=== PATIENT | female | born 1940 | race African-American/Black ===

== ENCOUNTER 2021-09-12 09:36 | Emergency (ER) | payer MEDICARE ==
[~2021-09-12] VITALS: Ht 160 cm; Wt 77.0 kg
[2021-09-12] MEDS ORDERED: MECLIZINE 12.5MG TABLET PO NR (12:00)
[2021-09-12 12:20] LABS: BASOPHILS % 0.5 % (0.0-2.0); EOSINOPHILS % 0.2 % (0.0-5.0); HEMATOCRIT. 32.9 % (36.0-48.0); HEMOGLOBIN. 10.8 g/dL (12.0-16.0); LYMPHOCYTES % 21.4 % (20.0-50.0); MEAN CORPUSCULAR HEMOGLOBIN 24.6 pg (28.0-32.0); MEAN CORPUSCULAR VOLUME 74.8 fL (81.0-99.0); MEAN PLATELET VOLUME 7.2 fl (7.4-10.4); MONOCYTES % 4.4 % (2.0-8.0); NEUTROPHILS % 73.5 % (40.0-76.0); PLATELET 226 x1000/uL (130-400); RED BLOOD CELL COUNT 4.39 mill/uL (4.2-5.4); RED CELL DISTRIBUTION WIDTH 15.7 % (11.6-14.6)
[2021-09-12 12:26] LABS: CHLORIDE 104 mEq/L (98-107)
[2021-09-12 12:32] LABS: CLARITY URINE CLEAR (CLEAR); COLOR URINE YELLOW (YELLOW); KETONES URINE NEGATIVE (NEGATIVE); LEUKOCYTE ESTERASE URINE NEGATIVE (NEGATIVE); NITRITE URINE NEGATIVE (NEGATIVE); OCCULT BLOOD URINE 1+ (NEGATIVE); PH URINE 6.5 (4.5-8.0); PROTEIN URINE NEGATIVE (NEGATIVE); SPECIFIC GRAVITY URINE 1.008 (1.005-1.030); UROBILINOGEN URINE 0.2 E.U./dL (0.2-1.0)
[2021-09-12] MEDS ORDERED: POTASSIUM CHLORIDE 20MEQ TABLET SR PO NR (14:00)
[2021-09-12 14:27] VITALS: BP 132/96
== END 2021-09-12 14:29 | disposition home or self-care (01) ==
LOC: ER 09:36
DX: I10 Essential (primary) hypertension (principal); R42 Dizziness and giddiness; E87.6 Hypokalemia; D64.9 Anemia, unspecified; Z96.651 Presence of right artificial knee joint
CPT/HCPCS: 36415; 71045; 80053; 81003; 84484; 85025; 93005; 99285; J8597

== ENCOUNTER 2021-12-27 11:16 | Emergency (ER) | payer MEDICARE ==
[~2021-12-27] VITALS: Ht 167.6 cm; Wt 89.0 kg
[2021-12-27 11:24] VITALS: BP 137/78
[2021-12-27] MEDS ORDERED: ACETAMINOPHEN 325MG TABLET PO ONE (12:30)
== END 2021-12-27 13:43 | disposition home or self-care (01) ==
LOC: ER 11:16
DX: M25.561 Pain in right knee (principal); I10 Essential (primary) hypertension
CPT/HCPCS: 73562; 99283

== ENCOUNTER 2022-03-30 12:48 | Emergency (ER) | payer MEDICARE, MEDICAID ==
[~2022-03-30] VITALS: Ht 162.6 cm; Wt 70.0 kg
[2022-03-30 15:45] VITALS: BP 161/87
== END 2022-03-30 16:00 | disposition home or self-care (01) ==
LOC: ER 12:48
DX: M25.561 Pain in right knee (principal); E78.00 Pure hypercholesterolemia, unspecified; I10 Essential (primary) hypertension; W01.0XXA Fall on same level from slipping, tripping and stumbling without subsequent striking against object, initial encounter; Y93.9 Activity, unspecified; Y92.9 Unspecified place or not applicable
CPT/HCPCS: 73562; 99283

== ENCOUNTER 2022-05-01 07:47 | Emergency (ER) | payer MEDICARE, MEDICAID ==
[~2022-05-01] VITALS: Ht 160 cm; Wt 73.0 kg
[2022-05-01] MEDS ORDERED: ACETAMINOPHEN 325MG TABLET PO ONE (09:15)
[2022-05-01] MEDS ORDERED: NAPR-681 PO (09:23)
[2022-05-01] MEDS ORDERED: NAPROXEN 375MG TABLET PO ONE (09:30)
[2022-05-01 09:40] LABS: BASOPHILS % 0.6 % (0.0-2.0); EOSINOPHILS % 0.4 % (0.0-5.0); HEMATOCRIT. 32.7 % (36.0-48.0); HEMOGLOBIN. 10.6 g/dL (12.0-16.0); LYMPHOCYTES % 38.2 % (20.0-50.0); MEAN CORPUSCULAR HEMOGLOBIN 24.6 pg (28.0-32.0); MEAN CORPUSCULAR VOLUME 75.7 fL (81.0-99.0); MEAN PLATELET VOLUME 7.5 fl (7.4-10.4); MONOCYTES % 7.5 % (2.0-8.0); NEUTROPHILS % 53.3 % (40.0-76.0); PLATELET 204 x1000/uL (130-400); RED BLOOD CELL COUNT 4.32 mill/uL (4.2-5.4); RED CELL DISTRIBUTION WIDTH 15.3 % (11.6-14.6)
[2022-05-01 09:47] LABS: CHLORIDE 100 mEq/L (98-107)
[2022-05-01 09:49] LABS: PROTHROMBIN TIME 11.2 sec (9.6-11.0)
[2022-05-01 09:55] VITALS: BP 147/84
== END 2022-05-01 10:08 | disposition home or self-care (01) ==
LOC: ER 07:47
DX: S09.8XXA Other specified injuries of head, initial encounter (principal); S80.01XA Contusion of right knee, initial encounter; M25.461 Effusion, right knee; I10 Essential (primary) hypertension; E78.00 Pure hypercholesterolemia, unspecified; Z96.651 Presence of right artificial knee joint; W01.0XXA Fall on same level from slipping, tripping and stumbling without subsequent striking against object, initial encounter; Y93.89 Activity, other specified; Y92.018 Other place in single-family (private) house as the place of occurrence of the external cause
CPT/HCPCS: 36415; 73560; 80053; 85025; 99285

== ENCOUNTER 2022-11-01 21:58 | Emergency (ER) | payer MEDICARE, MEDICAID ==
[~2022-11-01] VITALS: Ht 167.6 cm; Wt 59.0 kg
[~2022-11-01 21:58] MED LIST: NAPR-681 PO
[2022-11-02] MEDS ORDERED: LIDOCAINE 5% PATCH TOP SCH (03:00)
[2022-11-02 03:13] LABS: BASOPHILS % 0.8 % (0.0-2.0); EOSINOPHILS % 0.4 % (0.0-5.0); HEMATOCRIT. 31.8 % (36.0-48.0); HEMOGLOBIN. 10.2 g/dL (12.0-16.0); LYMPHOCYTES % 38.1 % (20.0-50.0); MEAN CORPUSCULAR VOLUME 74.7 fL (81.0-99.0); MEAN PLATELET VOLUME 7.1 fl (7.4-10.4); MONOCYTES % 10.5 % (2.0-8.0); NEUTROPHILS % 50.2 % (40.0-76.0); PLATELET 212 x1000/uL (130-400); RED BLOOD CELL COUNT 4.26 mill/uL (4.2-5.4); RED CELL DISTRIBUTION WIDTH 15.9 % (11.6-14.6)
[2022-11-02 03:19] LABS: CHLORIDE 108 mEq/L (98-107)
[2022-11-02] MEDS ORDERED: ACETAMINOPHEN 325MG TABLET PO ONE (03:45)
[2022-11-02] MEDS ORDERED: IBUPROFEN 400MG TABLET PO ONE (03:45)
[2022-11-02 04:19] LABS: CLARITY URINE CLEAR (CLEAR); COLOR URINE YELLOW (YELLOW); KETONES URINE NEGATIVE (NEGATIVE); LEUKOCYTE ESTERASE URINE NEGATIVE (NEGATIVE); NITRITE URINE NEGATIVE (NEGATIVE); OCCULT BLOOD URINE 3+ (NEGATIVE); PH URINE 6.5 (4.5-8.0); PROTEIN URINE NEGATIVE (NEGATIVE); SPECIFIC GRAVITY URINE 1.023 (1.005-1.030)
[2022-11-02] MEDS ORDERED: LIDO700A15 TP (04:59)
[2022-11-02] MEDS ORDERED: TOPUD MT (04:59)
[2022-11-02 05:08] VITALS: BP 118/67
== END 2022-11-02 05:09 | disposition home or self-care (01) ==
LOC: ER 21:58
DX: S39.012A Strain of muscle, fascia and tendon of lower back, initial encounter (principal); I10 Essential (primary) hypertension; E78.00 Pure hypercholesterolemia, unspecified; D64.9 Anemia, unspecified; Z98.890 Other specified postprocedural states; X50.0XXA Overexertion from strenuous movement or load, initial encounter; X50.9XXA Other and unspecified overexertion or strenuous movements or postures, initial encounter; Y93.89 Activity, other specified; Y92.89 Other specified places as the place of occurrence of the external cause; Y99.8 Other external cause status
CPT/HCPCS: 36415; 80053; 81003; 85025; 99283

== ENCOUNTER 2022-12-07 18:29 | Emergency (ER) | payer MEDICARE, MEDICAID ==
[~2022-12-07] VITALS: Ht 162.6 cm; Wt 72.6 kg
[~2022-12-07 18:29] MED LIST changes: +LIDO700A15 TP; +TOPUD MT
[2022-12-07] MEDS ORDERED: NAPROXEN 375MG TABLET PO ONE (23:00)
[2022-12-07] MEDS ORDERED: NAPR-677 MT (23:51)
[2022-12-08 00:13] VITALS: BP 132/72
== END 2022-12-08 00:21 | disposition home or self-care (01) ==
LOC: ER 18:29
DX: S13.9XXA Sprain of joints and ligaments of unspecified parts of neck, initial encounter (principal); X58.XXXA Exposure to other specified factors, initial encounter; Y93.89 Activity, other specified; Y92.89 Other specified places as the place of occurrence of the external cause; Y99.8 Other external cause status; E78.00 Pure hypercholesterolemia, unspecified; I10 Essential (primary) hypertension
CPT/HCPCS: 73000; 99283; A4565

== ENCOUNTER 2023-08-28 16:15 | Emergency (ER) | payer MEDICARE, MEDICAID ==
[~2023-08-28] VITALS: Ht 162.6 cm; Wt 86.9 kg
[~2023-08-28 16:15] MED LIST changes: +NAPR-677 MT
[2023-08-28 16:28] VITALS: O2SAT 99
[2023-08-28] MEDS: IBUPROFEN 400MG TABLET PO ONE (19:18)
[2023-08-28 19:39] VITALS: BP 162/67; PULSE 75; RESP 18; TEMP 97.7
== END 2023-08-28 19:45 | disposition home or self-care (01) ==
LOC: ER 16:15
DX: M25.511 Pain in right shoulder (principal); M17.12 Unilateral primary osteoarthritis, left knee; E78.00 Pure hypercholesterolemia, unspecified; I10 Essential (primary) hypertension; Z98.890 Other specified postprocedural states
CPT/HCPCS: 73030; 73562; 99283

== ENCOUNTER 2023-09-24 10:01 | Emergency (ER) | payer MEDICARE, MEDICAID ==
[~2023-09-24] VITALS: Ht 157.5 cm; Wt 73.0 kg
[2023-09-24] MEDS: LIDOCAINE 5% PATCH TOP SCH (09:00)
[2023-09-24 10:06] VITALS: O2SAT 99
[2023-09-24] MEDS: ACETAMINOPHEN 500MG TABLET PO ONE (11:01)
[2023-09-24] MEDS ORDERED: ACET-2708 MT (11:33)
[2023-09-24] MEDS ORDERED: LIDO700A15 TP (11:33)
[2023-09-24] MEDS ORDERED: CEPH500T MT (11:35)
[2023-09-24 11:50] VITALS: PULSE 61; TEMP 97.6
[2023-09-24 11:53] VITALS: BP 164/80; RESP 18
== END 2023-09-24 11:49 | disposition home or self-care (01) ==
LOC: ER 11:05
DX: T81.89XA Other complications of procedures, not elsewhere classified, initial encounter (principal); S81.831A Puncture wound without foreign body, right lower leg, initial encounter; M54.50 Low back pain, unspecified; E78.00 Pure hypercholesterolemia, unspecified; I10 Essential (primary) hypertension; Z79.899 Other long term (current) drug therapy; X58.XXXA Exposure to other specified factors, initial encounter; Y93.89 Activity, other specified; Y92.89 Other specified places as the place of occurrence of the external cause; Y99.8 Other external cause status
CPT/HCPCS: 99283

== ENCOUNTER 2023-10-24 12:40 | Emergency (ER) | payer MEDICARE, MEDICAID ==
[~2023-10-24] VITALS: Ht 167.6 cm; Wt 53.0 kg
[~2023-10-24 12:40] MED LIST changes: +ACET-2708 MT; +CEPH500T MT
[2023-10-24 12:42] VITALS: O2SAT 100
[2023-10-24 13:36] LABS: BASOPHILS % 0.4 % (0.0-2.0); DIFFERENTIAL COMMENT 0; EOSINOPHILS % 1.2 % (0.0-5.0); HEMATOCRIT. 33.4 % (36.0-48.0); HEMOGLOBIN. 10.6 g/dL (12.0-16.0); LYMPHOCYTES % 40.8 % (20.0-50.0); MEAN CORPUSCULAR HGB CONC 31.7 g/dL (31.0-37.0); MEAN CORPUSCULAR VOLUME 75.7 fL (81.0-99.0); MEAN PLATELET VOLUME 7.5 fl (7.4-10.4); MONOCYTES % 7.1 % (2.0-8.0); NEUTROPHILS % 50.5 % (40.0-76.0); PLATELET 157 x1000/uL (130-400); RED BLOOD CELL COUNT 4.41 mill/uL (4.2-5.4); WHITE BLOOD COUNT 4.2 x1000/uL (4.5-11.0)
[2023-10-24 13:46] LABS: CHLORIDE 107 mEq/L (98-107); POTASSIUM 3.6 mEq/L (3.5-5.1); SODIUM 139 mEq/L (136-145)
[2023-10-24 13:47] LABS: CARBON DIOXIDE 25 mEq/L (21-32)
[2023-10-24 13:52] LABS: CREATININE 0.8 mg/dL (0.6-1.0); GLUCOSE 91 mg/dL (70-105); UREA NITROGEN BLOOD 12 mg/dL (9-23)
[2023-10-24 13:53] LABS: TROPONIN I HIGH SENSITIVITY 10 ng/L (3.0-34)
[2023-10-24 13:54] LABS: ALANINE AMINOTRANSFERASE 77 IU/L (10-49); ALBUMIN 4.2 g/dL (3.2-4.8); ASPARTATE AMINOTRANSFERASE 38 IU/L (<34)
[2023-10-24 13:55] LABS: BILIRUBIN TOTAL 0.7 mg/dL (0.1-1.0); PROTEIN TOTAL 8.6 g/dL (6.0-8.3)
[2023-10-24] MEDS: SODIUM CHLORIDE 0.9% 500 ML IV ONE (15:30)
[2023-10-24 16:20] LABS: TROPONIN I HIGH SENSITIVITY 12 ng/L (3.0-34)
[2023-10-24] MEDS ORDERED: HYDR50TA55 MT (16:38)
[2023-10-24 16:56] VITALS: BP 145/58; PULSE 70; RESP 17; TEMP 98.5
== END 2023-10-24 17:34 | disposition home or self-care (01) ==
LOC: ER 13:37
DX: R53.1 Weakness (principal); R42 Dizziness and giddiness; E78.00 Pure hypercholesterolemia, unspecified; I10 Essential (primary) hypertension
CPT/HCPCS: 99283; 96360; 71045; 80053; 83880; 85025; 84484; 36415; 93005; J7040